=== PATIENT | male | born 1930 | race Caucasian/White ===

== ENCOUNTER 2020-11-16 09:22 | Outpatient (CLI) | payer MEDICARE | END 2020-11-16 09:23 | disposition critical access hospital (66) | LOC: EMS 09:22 | PROVIDERS: ATTEND Emergency Medicine | DX: R06.02 Shortness of breath (principal); R06.2 Wheezing; R05 Cough | CPT/HCPCS: A0425; A0429 ==

== ENCOUNTER 2020-11-16 09:40 | Emergency (ER) | payer MEDICARE ==
[2020-11-16] MEDS ORDERED: DEXAMETHASONE 10 MG/ML VIAL IVP STA (09:50)
[2020-11-16] MEDS ORDERED: IPRATROPIUM/ALBUTEROL 3 ML NEB INH STA (09:50)
--- NOTE | 2020-11-16 09:53 | ED Physician Documentation ---
PD HPI DYSPNEA - Stated complaint Stated Complaint: SOA - Chief complaint Chief Complaint: Resp - History obtained from History obtained from: Patient, EMS - Additional information Additional information: 89-year-old gentleman with history of gout and hypertension. No history of heart or lung disease. He felt fatigued and breathless on his usual walk yesterday and since last night he has had chest congestion and shortness of breath which is worse when supine. There is no associated chest pain or pedal edema. No history of heart problems. Of note he was on a low-dose, 5 mg, of prednisone which he discontinued 5 days ago. This was for gout. He received a couple of puffs of MDI on the way in which was helpful for him. No fevers, sore throat, or body aches. He does have a mild runny nose. Review of Systems Ten Systems: 10 systems reviewed and negative Constitutional: denies: Fever, Chills, Myalgias Nose: reports: Rhinorrhea / runny nose Throat: denies: Sore throat Cardiac: denies: Chest pain / pressure, Pedal edema, Calf pain Respiratory: reports: Dyspnea, Cough, Wheezing PD PAST MEDICAL HISTORY - Present Medications Home Medications: Ambulatory Orders Medication Instructions Recorded Confirmed Albuterol Sulf [Ventolin Hfa 1 - 2 puffs INH Q4HR PRN #1 inhaler 11/16/20 Inhaler] Benzonatate [Tessalon] 200 mg PO TID PRN #300 11/16/20 lisinopriL [Lisinopril] 1 tab PO DAILY 11/16/20 11/16/20 - Allergies Allergies/Adverse Reactions: Allergies Allergy/AdvReac Type Severity Reaction Status Date / Time No Known Drug Allergies Allergy Verified 11/16/20 09:54 PD ED PE NORMAL - Vitals Vital signs reviewed: Yes - General General: Alert and oriented X 3, No acute distress - HEENT HEENT: PERRL, EOMI - Neck Neck: Supple, no meningeal sign, No bony TTP - Cardiac Cardiac: RRR, No murmur - Respiratory Respiratory: Other (Audible wheezing without other focal findings. Nonlabored.) - Abdomen Abdomen: Soft, Non tender - Back Back: No CVA TTP, No spinal TTP - Derm Derm: Normal color, Warm and dry - Extremities Extremities: No edema, No calf tenderness / cord - Neuro Neuro: Alert and oriented X 3, Normal speech Results - Vitals Vitals: Vital Signs - 24 hr 11/16/20 11/16/20 11/16/20 09:48 10:09 10:40 Temperature 36.6 C Heart Rate 70 76 70 Respiratory 20 18 16 Rate Blood Pressure 152/87 110/84 H O2 Saturation 96 96 11/16/20 11:25 Temperature Heart Rate 72 Respiratory 18 Rate Blood Pressure 119/77 O2 Saturation 95 Oxygen O2 Source Room air - EKG (time done) 1003 Rate: Rate (enter#) (64) Rhythm: NSR [place]: Normal Intervals: RBBB QRS: Normal Ischemia: Normal ST segments Compare to prior EKG: Old EKG unavailable Computer interpretation: Agree with computer - Labs Labs: Laboratory Tests 11/16/20 11/16/20 11/16/20 09:57 09:57 09:57 WBC 8.0 RBC 3.90 L Hgb 12.3 L Hct 37.1 L MCV 95.1 H MCH 31.5 H MCHC 33.2 RDW 13.2 Plt Count 166 MPV 9.9 Neut # (Auto) Not Reportable Lymph # (Auto) Not Reportable [place] # (Auto) Not Reportable Eos # (Auto) Not Reportable Baso # (Auto) Not Reportable Absolute Nucleated RBC Not Reportable Total Counted 100 Band Neuts % (Manual) 1 Abnorm Lymph % (Manual) 0 Nucleated RBC % Not Reportable Neutrophils # (Manual) 3.7 Lymphocytes # (Manual) 2.3 Monocytes # (Manual) 1.1 H Eosinophils # (Manual) 0.8 H Basophils # (Manual) 0.1 Differential Comment MANUAL DIFFERENTIAL WBC Morphology NORMAL APPEARANCE Platelet Estimate NORMAL (130-450,000) Platelet Morphology NORMAL APPEARANCE RBC Morph Micro Appear NORMAL APPEARANCE Sodium 136 Potassium 5.0 Chloride 104 Carbon Dioxide 21 Anion Gap 11.0 BUN 35 H Creatinine 1.5 H Estimated GFR (MDRD) 44 L Glucose 99 Calcium 9.1 B-Natriuretic Peptide 129 H Nasal Adenovirus (PCR) Nasal B. parapertussis DNA (PCR) Nasal Coronavir 229E PCR Nasal Coronavir HKU1 PCR Nasal Coronavir NL63 PCR Nasal Coronavir OC43 PCR Nasal Enterovir/Rhinovir PCR Nasal Influenza B PCR Nasal Influenza A PCR Nasal Parainfluen 1 PCR Nasal Parainfluen 2 PCR Nasal Parainfluen 3 PCR Nasal Parainfluen 4 PCR Nasal RSV (PCR) Nasal B.pertussis DNA PCR Nasal C.pneumoniae (PCR) Ino Human Metapneumo PCR Nasal M.pneumoniae (PCR) Nasal SARS-CoV-2 (PCR) 11/16/20 09:57 WBC RBC Hgb Hct MCV MCH MCHC RDW Plt Count MPV Neut # (Auto) Lymph # (Auto) [place] # (Auto) Eos # (Auto) Baso # (Auto) Absolute Nucleated RBC Total Counted Band Neuts % (Manual) Abnorm Lymph % (Manual) Nucleated RBC % Neutrophils # (Manual) Lymphocytes # (Manual) Monocytes # (Manual) Eosinophils # (Manual) Basophils # (Manual) Differential Comment WBC Morphology Platelet Estimate Platelet Morphology RBC Morph Micro Appear Sodium Potassium Chloride Carbon Dioxide Anion Gap BUN Creatinine Estimated GFR (MDRD) Glucose Calcium B-Natriuretic Peptide Nasal Adenovirus (PCR) NOT DETECTED Nasal B. parapertussis DNA (PCR) NOT DETECTED Nasal Coronavir 229E PCR NOT DETECTED Nasal Coronavir HKU1 PCR NOT DETECTED Nasal Coronavir NL63 PCR NOT DETECTED Nasal Coronavir OC43 PCR NOT DETECTED Nasal Enterovir/Rhinovir PCR NOT DETECTED Nasal Influenza B PCR NOT DETECTED Nasal Influenza A PCR NOT DETECTED Nasal Parainfluen 1 PCR NOT DETECTED Nasal Parainfluen 2 PCR NOT DETECTED Nasal Parainfluen 3 PCR NOT DETECTED Nasal Parainfluen 4 PCR NOT DETECTED Nasal RSV (PCR) NOT DETECTED Nasal B.pertussis DNA PCR NOT DETECTED Nasal C.pneumoniae (PCR) NOT DETECTED Ino Human Metapneumo PCR NOT DETECTED Nasal M.pneumoniae (PCR) NOT DETECTED Nasal SARS-CoV-2 (PCR) NOT DETECTED - Rads (name of study) 1v chest Radiology: EMP read contemporaneously (NAD) PD MEDICAL DECISION MAKING - ED course ED course: 89-year-old gentleman with shortness of breath and wheezing. Seems most consistent with viral bronchitis. Differential diagnosis would also include heart failure. No evidence of that on chest x-ray, his BNP was only very modestly elevated not consistent with that diagnosis. He was much improved after a DuoNeb here. Rapid Covid test was done as given his age he would be a candidate for antibody therapy, but this was negative. Departure - Departure Disposition: 01 Home, Self Care Clinical Impression: Viral bronchitis Condition: Good Record reviewed to determine appropriate education?: Yes Instructions: ED Upper Resp Infec No Abx Tx Prescriptions: Albuterol Sulf [Ventolin Hfa Inhaler] 1 - 2 puffs INH Q4HR PRN #1 inhaler PRN Reason: Shortness Of Air/Wheezing Benzonatate [Tessalon] 200 mg PO TID PRN #300 PRN Reason: Dyspnea Comments: No sign of pneumonia or bacterial illness. It seems like the breathing got a lot better with the breathing treatment so the albuterol inhaler should help. We also gave you a single dose of steroids here, I do not think he will need any more. Return for new or worsening symptoms, especially fever or increased shortness of breath. Follow-up with your primary care physician, next available appointment. Forms: Watchful Waiting Discharge Date/Time: 11/16/20 11:29
[2020-11-16 10:01] LABS: BASOPHILS % (AUTO) 0.8 %; EOSINOPHILS % (AUTO) 13.7 %; HCT - HEMATOCRIT 37.1 % (42.0-52.0); HGB - HEMOGLOBIN 12.3 g/dL (14.0-18.0); MEAN CORPUSCULAR HEMOGLOBIN 31.5 pg (27.0-31.0); MEAN CORPUSCULAR HGB CONC 33.2 g/dL (32.0-36.0); MEAN CORPUSCULAR VOLUME 95.1 fL (80.0-94.0); MEAN PLATELET VOLUME 9.9 fL (7.4-11.4); NEUTROPHILS % (AUTO) 49.4 %; PLT - PLATELET COUNT 166 10^3/uL (130-450); RED CELL DISTRIBUTION WIDTH 13.2 % (12.0-15.0)
[2020-11-16 10:04] LABS: ABNORMAL LYMPHS % (MANUAL) 0 %
[2020-11-16 10:18] LABS: CALCIUM 9.1 mg/dL (8.5-10.3); CREATININE 1.5 mg/dL (0.6-1.2)
[2020-11-16 10:20] LABS: BAND NEUTROPHILS % (MANUAL) 1 %; BASOPHILS # (MANUAL) 0.1 10^3/uL (0-0.1); BASOPHILS % (MANUAL) 1 %; EOSINOPHILS # (MANUAL) 0.8 10^3/uL (0-0.7); LYMPHOCYTES # (MANUAL) 2.3 10^3/uL (1.5-3.5); LYMPHOCYTES % (MANUAL) 29 %; MONOCYTES # (MANUAL) 1.1 10^3/uL (0.0-1.0); NEUTROPHILS # (MANUAL) 3.7 10^3/uL (1.5-6.6); PLATELET ESTIMATE, MANUAL NORMAL (130-450,000) (NORMAL); PLATELET MORPHOLOGY NORMAL APPEARANCE (NORMAL); RBC MORPHOLOGY (MULTIPLE) NORMAL APPEARANCE (NORMAL); WBC MORPHOLOGY (MULTIPLE) NORMAL APPEARANCE (NORMAL)
[2020-11-16 10:21] LABS: DIFFERENTIAL COMMENT MANUAL DIFFERENTIAL
--- NOTE | 2020-11-16 10:31 | XRAY Report ---
PROCEDURE: Chest 1 View X-Ray INDICATIONS: Cough TECHNIQUE: One view of the chest was acquired. COMPARISON: None FINDINGS: Surgical changes and devices: None. Lungs and pleura: No pleural effusions or pneumothorax. Lungs are clear. Mediastinum: Mediastinal contours appear normal. Heart size is normal. Bones and chest wall: No suspicious bony lesions. Overlying soft tissues appear unremarkable. IMPRESSION: No acute cardiopulmonary process demonstrated radiographically. Reviewed by: Tal Baum MD on 11/16/2020 10:30 AM [facility] Approved by: Tal Baum MD on 11/16/2020 10:30 AM [facility] Station ID: [id number]
[2020-11-16 10:50] LABS: B. PARAPERTUSSIS- RESP PCR PAN NOT DETECTED; B. PERTUSSIS- RESP PCR PANEL NOT DETECTED; C. PNEUMONIAE- RESP PCR PANEL NOT DETECTED; CORONAVIRUS 229E-RESP PCR NOT DETECTED; CORONAVIRUS HKU1-RESP PCR NOT DETECTED; CORONAVIRUS NL63-RESP PCR NOT DETECTED; CORONAVIRUS OC43-RESP PCR NOT DETECTED; HUMAN METAPNEUMOVIRUS NOT DETECTED; INFLUENZA A- RESP PCR PANEL NOT DETECTED; INFLUENZA B - RESP PCR PANEL NOT DETECTED; M. PNEUMONIAE- RESP PCR PANEL NOT DETECTED; PARAINFLUENZA VIRUS 1 NOT DETECTED; PARAINFLUENZA VIRUS 2 NOT DETECTED; PARAINFLUENZA VIRUS 3 NOT DETECTED; PARAINFLUENZA VIRUS 4 NOT DETECTED; RHINOVIRUS/ENTEROVIRUS NOT DETECTED; RSV- RESP PCR PANEL NOT DETECTED; SARS-CoV-2 -RESP PCR PANEL NOT DETECTED
[2020-11-16 11:25] VITALS: BP 119/77
== END 2020-11-16 11:29 | disposition home or self-care (01) ==
LOC: EDUNIT# → EDSEX → ED 09:40
DX: J20.8 Acute bronchitis due to other specified organisms (principal); Z20.822 Contact with and (suspected) exposure to COVID-19; I10 Essential (primary) hypertension; I45.10 Unspecified right bundle-branch block
CPT/HCPCS: 0202U; 36415; 80048; 83880; 85025; 93005; 94640; 96374; 99284

== ENCOUNTER 2021-04-10 10:25 | Outpatient (CLI) | payer MEDICARE ==
[2021-04-10 13:27] LABS: BASOPHILS % (AUTO) 0.1 %; EOSINOPHILS % (AUTO) 0.3 %; HCT - HEMATOCRIT 36.7 % (42.0-52.0); HGB - HEMOGLOBIN 12.1 g/dL (14.0-18.0); LYMPHOCYTES # (AUTO) 1.3 10^3/uL (1.5-3.5); LYMPHOCYTES % (AUTO) 17.2 %; MEAN CORPUSCULAR HEMOGLOBIN 31.2 pg (27.0-31.0); MEAN CORPUSCULAR VOLUME 94.6 fL (80.0-94.0); MONOCYTES # (AUTO) 0.4 10^3/uL (0.0-1.0); MONOCYTES % (AUTO) 5.4 %; NEUTROPHILS # (AUTO) 5.6 10^3/uL (1.5-6.6); NEUTROPHILS % (AUTO) 76.6 %; PLT - PLATELET COUNT 206 10^3/uL (130-450); RED BLOOD COUNT 3.88 10^6/uL (4.70-6.10); RED CELL DISTRIBUTION WIDTH 13.3 % (12.0-15.0); WHITE BLOOD COUNT 7.3 x10^3/uL (4.8-10.8)
== END 2021-04-10 10:26 | disposition home or self-care (01) ==
LOC: LAB.N 10:25
PROVIDERS: ATTEND Nurse Practitioner Gerontology
DX: R05 Cough (principal); R06.02 Shortness of breath
CPT/HCPCS: 36415; 83880; 85025

== ENCOUNTER 2021-04-10 16:59 | Outpatient (CLI) | payer MEDICARE ==
--- NOTE | 2021-04-11 08:33 | XRAY Report ---
PROCEDURE: Chest 2 View X-Ray INDICATIONS: COUGH, SOB TECHNIQUE: 2 view(s) of the chest. COMPARISON: 11/16/2020 FINDINGS: Surgical changes and devices: None. Lungs and pleura: No pleural effusions or pneumothorax. Lungs are clear. Mediastinum: Mediastinal contours are normal. Heart size is normal. Bones and chest wall: No suspicious bony abnormalities. Soft tissues appear unremarkable. IMPRESSION: No acute airspace opacity. No acute finding. Reviewed by: Tal Baum MD on 04/11/2021 8:32 AM PDT Approved by: Tal Baum MD on 04/11/2021 8:32 AM PDT Station ID: [id number]
== END 2021-04-10 17:00 | disposition home or self-care (01) ==
LOC: DI.N 16:59
PROVIDERS: ATTEND Nurse Practitioner Gerontology
DX: R05 Cough (principal); R06.02 Shortness of breath
CPT/HCPCS: 36415; 83880; 85025

== ENCOUNTER 2021-07-27 12:24 | Outpatient (CLI) | payer MEDICARE ==
[2021-07-27 13:12] LABS: CALCIUM 9.2 mg/dL (8.5-10.3); CREATININE 1.8 mg/dL (0.6-1.2); POTASSIUM 5.5 mmol/L (3.5-5.0)
[2021-07-27] MEDS ORDERED: IOVERSOL 320 100 ML VIAL IVP ONE (13:14)
[2021-07-27] MEDS: IOVERSOL 320 100 ML VIAL IVP ONE (13:51)
--- NOTE | 2021-07-27 14:18 | CT Report ---
PROCEDURE: CHEST W INDICATIONS: SHORTNESS OF BREATH, COPD COUGH CONTRAST: IV CONTRAST: Optiray 320 ml: 100 PO CONTRAST: *NO PO CONTRAST TECHNIQUE: After the administration of intravenous contrast, 5 mm thick sections acquired from the pulmonary api vy to the posterior costophrenic angles. 7 mm thick coronal MIP reformats were acquired. For radia tion dose reduction, the following was used: automated exposure control, adjustment of mA and/or kV according to patient size. COMPARISON: Chest radiographs dated 04/10/2021 FINDINGS: CHEST: Lungs: Diffuse peribronchial cuffing suggestive of nonspecific bronchitis and/or reactive airways dis ease. Scattered subsegmental scarring/atelectasis. No acute consolidation. Patchy opacities in both dependent lung bases, potentially additional atelectasis/aspiration. This could be chronic scarring. Pleura: No pleural effusion or pneumothorax. Heart: Normal in size. No pericardial effusion. Mild coronary artery calcifications. Lymph nodes: Normal. Thyroid: Unremarkable Aorta: Normal in size. Scattered atheromatous calcifications seen in the aorta. Pulmonary arteries: Normal. Esophagus: Normal. Bones: Diffuse spondolytic changes and facet arthropathy. No compression fracture. Upper abdomen: Bilateral simple appearing renal cysts. No hydronephrosis. Presumed scant bilateral re nal hilar vascular calcifications. IMPRESSION: Diffuse atelectasis and scarring. Diffuse peribronchial cuffing suggestive of nonspecific bronchitis and/or reactive airways disease. No definite focal consolidation although patchy dependent opacities in both lung bases could be mild scarring, atelectasis versus aspiration. If there is persistent clinical diagnostic uncertainty, recommend short interval radiographic follow- up after treatment for further assessment. Mild coronary atherosclerosis Reviewed by: John Larsen MD on 07/27/2021 2:16 PM PST Approved by: John Larsen MD on 07/27/2021 2:16 PM PST Station ID: [id number]
== END 2021-07-27 12:25 | disposition home or self-care (01) ==
LOC: LAB 12:24
PROVIDERS: ATTEND Nurse Practitioner Gerontology
DX: J44.9 Chronic obstructive pulmonary disease, unspecified (principal); R05.3 Chronic cough; R06.02 Shortness of breath; J98.11 Atelectasis; R91.8 Other nonspecific abnormal finding of lung field
CPT/HCPCS: 36415; 71260; 80048; Q9967

== ENCOUNTER 2021-08-23 08:20 | Outpatient (CLI) | payer MEDICARE | END 2021-08-23 08:21 | disposition critical access hospital (66) | LOC: EMS 08:20 | DX: R06.02 Shortness of breath (principal) | CPT/HCPCS: A0425; A0429 ==

== ENCOUNTER 2021-08-23 08:40 | Emergency (ER) | payer MEDICARE ==
--- NOTE | 2021-08-23 08:58 | ED Physician Documentation ---
PD HPI DYSPNEA - Stated complaint Stated Complaint: SOA - History obtained from History obtained from: Patient PD PAST MEDICAL HISTORY - Past Medical History Respiratory: COPD - Past Surgical History Past Surgical History: No - Present Medications Home Medications: Ambulatory Orders Medication Instructions Recorded Confirmed Albuterol Sulf [Ventolin Hfa 1 - 2 puffs INH Q4HR PRN #1 inhaler 11/16/20 Inhaler] Benzonatate [Tessalon] 200 mg PO TID PRN #300 11/16/20 lisinopriL [Lisinopril] 1 tab PO DAILY 11/16/20 11/16/20 Albuterol Sulf [Ventolin Hfa 3 - 4 puffs INH Q4HR PRN #1 inhaler 08/23/21 Inhaler] Amoxicillin 500 mg PO TID 5 Days #15 cap 08/23/21 Benzonatate [Tessalon] 100 mg PO TID PRN #20 cap 08/23/21 dexAMETHasone [Decadron] 4 mg PO DAILY #7 tablet 08/23/21 - Allergies Allergies/Adverse Reactions: Allergies Allergy/AdvReac Type Severity Reaction Status Date / Time No Known Drug Allergies Allergy Verified 08/23/21 08:59 - Social History Does the pt smoke?: No Smoking Status: Never smoker PD ED PE NORMAL - Vitals Vital signs reviewed: Yes - General General: Alert and oriented X 3, Well developed/nourished, Other (having repetitive coughing and some partial sentence dyspnea with wheezing. ) - HEENT HEENT: Moist mucous membranes, Pharynx benign - Neck Neck: Supple, no meningeal sign, No adenopathy, No JVD - Cardiac Cardiac: RRR, No murmur - Respiratory Respiratory: No: Clear bilaterally (exp wheezing noted diffusely. NO coarse sounds. ) - Abdomen Abdomen: Soft, Non tender - Back Back: No CVA TTP - Derm Derm: Normal color, Warm and dry, No rash - Extremities Extremities: Normal ROM s pain, No edema, No calf tenderness / cord - Neuro Neuro: Alert and oriented X 3, No motor deficit, Normal speech Eye Opening: Spontaneous Motor: Obeys Commands Verbal: Oriented GCS Score: 15 Results - Vitals Vitals: Vital Signs - 24 hr 08/23/21 08/23/21 08/23/21 08:51 09:35 11:28 Temperature 36.9 C Heart Rate 78 74 76 Respiratory 18 16 14 Rate Blood Pressure 160/72 H O2 Saturation 94 08/23/21 13:08 Temperature 36.6 C Heart Rate 78 Respiratory 14 Rate Blood Pressure 133/84 H O2 Saturation 96 Oxygen O2 Source Room air - EKG (time done) 08:42 Rate: Rate (enter#) (77) Rhythm: NSR [place]: Normal Intervals: RBBB QRS: Normal Ischemia: Normal ST segments. No: ST elevation c/w ischemia, ST depression - Labs Labs: Laboratory Tests 08/23/21 08/23/21 08/23/21 09:32 09:44 09:44 WBC 9.3 RBC 3.94 L Hgb 12.1 L Hct 36.9 L MCV 93.7 MCH 30.7 MCHC 32.8 RDW 13.4 Plt Count 175 MPV 10.1 Neut # (Auto) 5.4 Lymph # (Auto) 1.8 [place] # (Auto) 0.7 Eos # (Auto) 1.4 H Baso # (Auto) 0.0 Manual Slide Review Indicated WBC Morphology NORMAL APPEARANCE Platelet Estimate NORMAL (130-450,000) Platelet Morphology NORMAL APPEARANCE RBC Morph Micro Appear NORMAL APPEARANCE Sodium 137 Potassium 4.8 Chloride 105 Carbon Dioxide 20 L Anion Gap 12.0 BUN 34 H Creatinine 1.6 H Estimated GFR (MDRD) 41 L Glucose 100 Calcium 9.3 Total Bilirubin 1.3 H AST 19 ALT 13 Alkaline Phosphatase 64 Troponin I High Sens B-Natriuretic Peptide Total Protein 7.1 Albumin 4.0 Globulin 3.1 Albumin/Globulin Ratio 1.3 Lipase 32 Nasal Adenovirus (PCR) NOT DETECTED Nasal B. parapertussis DNA (PCR) NOT DETECTED Nasal Coronavir 229E PCR NOT DETECTED Nasal Coronavir HKU1 PCR NOT DETECTED Nasal Coronavir NL63 PCR NOT DETECTED Nasal Coronavir OC43 PCR NOT DETECTED Nasal Enterovir/Rhinovir PCR NOT DETECTED Nasal Influenza B PCR NOT DETECTED Nasal Influenza A PCR NOT DETECTED Nasal Parainfluen 1 PCR NOT DETECTED Nasal Parainfluen 2 PCR NOT DETECTED Nasal Parainfluen 3 PCR NOT DETECTED Nasal Parainfluen 4 PCR NOT DETECTED Nasal RSV (PCR) NOT DETECTED Nasal B.pertussis DNA PCR NOT DETECTED Nasal C.pneumoniae (PCR) NOT DETECTED Ino Human Metapneumo PCR NOT DETECTED Nasal M.pneumoniae (PCR) NOT DETECTED Nasal SARS-CoV-2 (PCR) NOT DETECTED 12/16/21 12/16/21 09:44 09:44 WBC RBC Hgb Hct MCV MCH MCHC RDW Plt Count MPV Neut # (Auto) Lymph # (Auto) [place] # (Auto) Eos # (Auto) Baso # (Auto) Manual Slide Review WBC Morphology Platelet Estimate Platelet Morphology RBC Morph Micro Appear Sodium Potassium Chloride Carbon Dioxide Anion Gap BUN Creatinine Estimated GFR (MDRD) Glucose Calcium Total Bilirubin AST ALT Alkaline Phosphatase Troponin I High Sens 13.3 B-Natriuretic Peptide 62 Total Protein Albumin Globulin Albumin/Globulin Ratio Lipase Nasal Adenovirus (PCR) Nasal B. parapertussis DNA (PCR) Nasal Coronavir 229E PCR Nasal Coronavir HKU1 PCR Nasal Coronavir NL63 PCR Nasal Coronavir OC43 PCR Nasal Enterovir/Rhinovir PCR Nasal Influenza B PCR Nasal Influenza A PCR Nasal Parainfluen 1 PCR Nasal Parainfluen 2 PCR Nasal Parainfluen 3 PCR Nasal Parainfluen 4 PCR Nasal RSV (PCR) Nasal B.pertussis DNA PCR Nasal C.pneumoniae (PCR) Ino Human Metapneumo PCR Nasal M.pneumoniae (PCR) Nasal SARS-CoV-2 (PCR) - Rads (name of study) chest xray Radiology: Prelim report reviewed (no infiltrates), See rad report PD MEDICAL DECISION MAKING - ED course Complexity details: reviewed results (no infiltrates. ), re-evaluated patient (he is improved and having good sats after nebs. He does get return of the cough with some wheezing, so given another neb. He feels comfortable breathing and is okay being discharged. ), considered differential (h/o asthma with exac. Will increased MDIs, add Spacer, dose steroids and abx. ), d/w patient Departure - Departure Disposition: 01 Home, Self Care Clinical Impression: Dyspnea Qualifiers: Dyspnea type: shortness of breath Qualified Code(s): R06.02 - Shortness of breath Exacerbation of asthma Qualifiers: Asthma severity: mild Asthma persistence: intermittent Qualified Code(s): J45.21 - Mild intermittent asthma with (acute) exacerbation Condition: Stable Record reviewed to determine appropriate education?: Yes Instructions: ED Bronchitis Asthmatic Prescriptions: Albuterol Sulf [Ventolin Hfa Inhaler] 3 - 4 puffs INH Q4HR PRN #1 inhaler PRN Reason: Shortness Of Air/Wheezing Amoxicillin 500 mg PO TID 5 Days #15 cap dexAMETHasone [Decadron] 4 mg PO DAILY #7 tablet Benzonatate [Tessalon] 100 mg PO TID PRN #20 cap PRN Reason: Cough Comments: Use your albuterol inhaler with the spacer 3 to 4 puffs 4 times a day regularly for the next several days to week. Use an extra times as needed for wheezing. Decadron steroid daily for the next week to help with inflammation of the airways. Benzonatate as needed for cough. Your viral test panel today did not show any signs of active viral infections including Covid. Your chest x-ray does not show any signs of pneumonia. That said, within the exacerbation of asthma, sometimes there could be a infectious component. See how you feel over the next few days regarding fever cough etc. amoxicillin 3 times a day for 5 days as directed. Recheck if not improving well over the next 2-3 days and return if worsening. I transmitted your scripts to the pharmacy. Discharge Date/Time: 08/23/21 13:26
[2021-08-23] MEDS: DEXAMETHASONE 10 MG/ML VIAL IVP STA (09:26)
[2021-08-23] MEDS: BENZONATATE 100 MG CAPSULE PO STA ×2 (09:27→11:24)
[2021-08-23] MEDS: AMOXICILLIN 250 MG CAPSULE PO STA (09:27)
[2021-08-23] MEDS: IPRATROPIUM/ALBUTEROL 3 ML NEB INH STA (09:33)
--- NOTE | 2021-08-23 09:41 | XRAY Report ---
PROCEDURE: Chest 1 View X-Ray INDICATIONS: chest pain TECHNIQUE: One view of the chest was acquired. COMPARISON: Chest radiograph 04/10/2021 FINDINGS: Surgical changes and devices: None. Lungs and pleura: No pleural effusions or pneumothorax. Lungs are clear. Mediastinum: Mediastinal contours appear normal. Heart size is normal. Mild aortic atherosclerotic calcifications. Bones and chest wall: No suspicious bony lesions. Overlying soft tissues appear unremarkable. IMPRESSION: No acute cardiopulmonary abnormality. Reviewed by: Speedy Coker MD on 08/23/2021 9:40 AM [facility] Approved by: Speedy Coker MD on 08/23/2021 9:40 AM [facility] Station ID: [id number]
[2021-08-23 10:20] LABS: POTASSIUM 4.8 mmol/L (3.5-5.0)
[2021-08-23 10:21] LABS: CALCIUM 9.3 mg/dL (8.5-10.3); CREATININE 1.6 mg/dL (0.6-1.2)
[2021-08-23 10:22] LABS: ALBUMIN/GLOBULIN RATIO 1.3 (1.0-2.2); BILIRUBIN,TOTAL 1.3 mg/dL (0.2-1.0); TOTAL PROTEIN 7.1 g/dL (6.7-8.2)
[2021-08-23 10:41] LABS: B. PARAPERTUSSIS- RESP PCR PAN NOT DETECTED; CORONAVIRUS 229E-RESP PCR NOT DETECTED; CORONAVIRUS HKU1-RESP PCR NOT DETECTED; CORONAVIRUS NL63-RESP PCR NOT DETECTED; CORONAVIRUS OC43-RESP PCR NOT DETECTED; HUMAN METAPNEUMOVIRUS NOT DETECTED; INFLUENZA A- RESP PCR PANEL NOT DETECTED; INFLUENZA B - RESP PCR PANEL NOT DETECTED; PARAINFLUENZA VIRUS 1 NOT DETECTED; PARAINFLUENZA VIRUS 2 NOT DETECTED; PARAINFLUENZA VIRUS 3 NOT DETECTED; PARAINFLUENZA VIRUS 4 NOT DETECTED; RHINOVIRUS/ENTEROVIRUS NOT DETECTED; RSV- RESP PCR PANEL NOT DETECTED; SARS-CoV-2 -RESP PCR PANEL NOT DETECTED
[2021-08-23 10:42] LABS: B. PERTUSSIS- RESP PCR PANEL NOT DETECTED; C. PNEUMONIAE- RESP PCR PANEL NOT DETECTED; M. PNEUMONIAE- RESP PCR PANEL NOT DETECTED
[2021-08-23 11:02] LABS: HCT - HEMATOCRIT 36.9 % (42.0-52.0); HGB - HEMOGLOBIN 12.1 g/dL (14.0-18.0); LYMPHOCYTES % (AUTO) 18.8 %; MEAN CORPUSCULAR HEMOGLOBIN 30.7 pg (27.0-31.0); MEAN CORPUSCULAR HGB CONC 32.8 g/dL (32.0-36.0); MEAN CORPUSCULAR VOLUME 93.7 fL (80.0-94.0); MEAN PLATELET VOLUME 10.1 fL (7.4-11.4); NEUTROPHILS % (AUTO) 58.2 %; PLT - PLATELET COUNT 175 10^3/uL (130-450); RED BLOOD COUNT 3.94 10^6/uL (4.70-6.10); RED CELL DISTRIBUTION WIDTH 13.4 % (12.0-15.0); WHITE BLOOD COUNT 9.3 x10^3/uL (4.8-10.8)
[2021-08-23 11:03] LABS: BASOPHILS % (AUTO) 0.9 %; EOSINOPHILS # (AUTO) 1.4 10^3/uL (0.0-0.7); LYMPHOCYTES # (AUTO) 1.8 10^3/uL (1.5-3.5); MONOCYTES # (AUTO) 0.7 10^3/uL (0.0-1.0); NEUTROPHILS # (AUTO) 5.4 10^3/uL (1.5-6.6); PLATELET ESTIMATE, MANUAL NORMAL (130-450,000) (NORMAL); PLATELET MORPHOLOGY NORMAL APPEARANCE (NORMAL); RBC MORPHOLOGY (MULTIPLE) NORMAL APPEARANCE (NORMAL); SLIDE REVIEW? Indicated
[2021-08-23 11:04] LABS: WBC MORPHOLOGY (MULTIPLE) NORMAL APPEARANCE (NORMAL)
[2021-08-23] MEDS: diphenhydrAMINE ELIXIR 25 MG/10 ML UDC PO STA (11:24)
[2021-08-23] MEDS: ALBUTEROL NEB 2.5 MG/3 ML INH STA (11:27)
[2021-08-23 13:09] VITALS: BP 133/84
== END 2021-08-23 13:26 | disposition home or self-care (01) ==
LOC: EDUNIT# → ED 08:40
DX: J44.1 Chronic obstructive pulmonary disease with (acute) exacerbation (principal); J45.21 Mild intermittent asthma with (acute) exacerbation; Z20.822 Contact with and (suspected) exposure to COVID-19
CPT/HCPCS: 36415; 71045; 80053; 83690; 83880; 84484; 85025; 87631; 93005; 94640; 96374; 99281; 99284; A9270; 0202U